=== PATIENT | female | born 1995 | race Caucasian/White ===

== ENCOUNTER 2022-11-26 09:37 | Outpatient (CLI) | payer OTHER, SELFPAY ==
--- NOTE | 2022-11-26 10:15 | CRLHL7_ITS ---
For Patients: As a result of the Century Cures Act, medical imaging exams and procedure reports are released immediately into your electronic medical record. You may view this report before your referring provider. If you have questions, please contact your health care provider. CLINICAL HISTORY: : Right breast lump. COMPARISON: None TECHNIQUE: Real-time ultrasound imaging of right breast with imaging documentation. FINDINGS: Targeted sonogram right breast 9 o`clock 15 cm from the nipple corresponding to the area of concern performed. In this location there is a benign intramammary lymph node measuring 6 x 4 x 5 millimeters. IMPRESSION: Benign intramammary lymph node measuring 6 millimeters corresponding to the area of palpable concern. No evidence of malignancy. RECOMMENDATIONS: Clinical follow-up. Age appropriate screening mammography. BI-RADS: 2. Benign findings. Dictated by Dariel Hull MD @ 11/26/2022 10:31:31 AM (Electronically Signed)
== END 2022-11-26 09:38 | disposition home or self-care (01) ==
PROVIDERS: PCP Physician Assistant Medical; Visit Provider Obstetrics & Gynecology
DX: N63.10 Unspecified lump in the right breast, unspecified quadrant (principal)
CPT/HCPCS: 76642; 86592; 86703; 86706; 86803; 87340; 87491; 87591

== ENCOUNTER 2023-08-22 10:40 | Outpatient (CLI) | payer BC, SELFPAY | END 2023-08-22 10:41 | disposition home or self-care (01) | PROVIDERS: PCP Family Medicine; Visit Provider Family Medicine | DX: Z00.00 Encounter for general adult medical examination without abnormal findings (principal); Z13.6 Encounter for screening for cardiovascular disorders; Z83.49 Family history of other endocrine, nutritional and metabolic diseases | CPT/HCPCS: 80053; 80061; 84443; 86039; 86376 ==